=== PATIENT | female | born 1965 | race Caucasian/White ===

== ENCOUNTER 2018-01-11 15:49 | Observation (INO) | payer OTHER ==
[~2018-01-11] VITALS: Ht 167.6 cm; Wt 56.4 kg
[2018-01-11 16:17] LABS: BASOPHILS % 0.4 % (0.0-1.0); EOSINOPHILS # (AUTO) 0.1 (0.0-0.4); EOSINOPHILS % 2.6 % (0.0-6.0); HEMATOCRIT 36.3 % (34.2-44.1); HEMOGLOBIN 12.9 g/dL (12.0-16.0); LYMPHOCYTES # (AUTO) 1.6 (1.0-3.2); MEAN CORPUSCULAR HEMOGLOBIN 32.7 pg (28-32); MEAN CORPUSCULAR HGB CONC 35.5 g/dL (31-35); MEAN CORPUSCULAR VOLUME 92.1 fL (81-99); MONOCYTES # (AUTO) 0.7 (0.2-0.8); MONOCYTES % 15.2 % (4.4-11.3); NEUTROPHILS # (AUTO) 2.2 (2.1-6.9); NEUTROPHILS % 47.4 % (38.7-80.0); PLATELET COUNT 161 x10e3/uL (140-360); RED BLOOD COUNT 3.94 x10e6/uL (3.6-5.1); RED CELL DISTRIBUTION WIDTH 12.5 % (11.7-14.4)
--- NOTE | 2018-01-11 16:27 | Diagnostic Imaging Report ---
PROCEDURE: A single AP view of the chest. COMPARISON: None. INDICATIONS: MID CHEST PAIN, RADIATES TO NECK AND JAW FINDINGS: Lines/tubes: None. Lungs: The lungs are well inflated and clear. There is no evidence of pneumonia or pulmonary edema. Pleura: There is no pleural effusion or pneumothorax. Heart and mediastinum: The heart and the mediastinum are unremarkable. Bones: No acute bony abnormality. IMPRESSION: No acute cardiopulmonary disease. Dictated by: Brice Quan M.D. on 01/11/2018 at 16:31 Electronically approved by: Brice Quan M.D. on 01/11/2018 at 16:31
[2018-01-11 16:28] LABS: INR 1.07; PROTHROMBIN TIME 13.1 seconds (11.9-14.5)
[2018-01-11 16:29] LABS: PARTIAL THROMBOPLASTIN TIME 27.6 seconds (23.8-35.5)
[2018-01-11] MEDS ORDERED: ACETAMINOPHEN 325 MG TAB PO ONE (16:30)
[2018-01-11 16:38] LABS: ALANINE AMINOTRANSFERASE 15 IU/L (0-55); ALBUMIN 4.2 g/dL (3.5-5.0); ALBUMIN/GLOBULIN RATIO 1.6 (0.8-2.0); ALKALINE PHOSPHATASE 55 IU/L (40-150); ANION GAP 13.8 mmol/L (8-16); BLOOD UREA NITROGEN 30 mg/dL (7-26); BUN/CREATININE RATIO 30 (6-25); CALCIUM 9.7 mg/dL (8.4-10.2); CARBON DIOXIDE 28 mmol/L (22-29); CHLORIDE 102 mmol/L (98-107); CREATINE KINASE 44 IU/L (29-168); CREATININE, SERUM 1.01 mg/dL (0.57-1.11); EST GLOMERULAR FILTRATION RATE 57 ML/MIN (60-); GLUCOSE 95 mg/dL (74-118); POTASSIUM 3.8 mmol/L (3.5-5.1); SODIUM 140 mmol/L (136-145)
[2018-01-11 17:31] LABS: AMPHETAMINES SCREEN,URINE NEGATIVE (NEGATIVE); BENZODIAZEPINES SCREEN,URINE NEGATIVE (NEGATIVE); PHENCYCLIDINE SCREEN,URINE NEGATIVE (NEGATIVE)
[2018-01-11 17:33] LABS: BILIRUBIN,URINE NEGATIVE (NEGATIVE); CLARITY,URINE CLEAR (CLEAR); COLOR,URINE YELLOW (YELLOW); KETONES,URINE NEGATIVE (NEGATIVE); LEUKOCYTE ESTERASE ,URINE NEGATIVE (NEGATIVE); NITRITE,URINE NEGATIVE (NEGATIVE); PROTEIN,URINE DIPSTICK NEGATIVE (NEGATIVE); URINE UROBILINOGEN 0.2 mg/dL (0.2 - 1)
[2018-01-11 17:55] LABS: BACTERIA,URINE FEW /HPF; EPITHELIAL CELLS,URINE FEW /LPF; RBC,URINE 0-5 /HPF (0-5); WBC,URINE (MAN) 0-5 /HPF (0-5)
[2018-01-11] MEDS ORDERED: ASPIRIN 325 MG TAB PO ONE (18:15)
[2018-01-11 19:40] VITALS: BP 120/55
[2018-01-11 21:00] VITALS: BP 120/55
[2018-01-11 23:10] VITALS: BP 120/55
[2018-01-12] VITALS (9 sets, daily range): BP systolic 106–135; BP diastolic 49–67
[2018-01-12 00:43] LABS: CREATINE KINASE 34 IU/L (29-168)
[2018-01-12 06:41] LABS: CREATINE KINASE 38 IU/L (29-168)
[2018-01-12 07:11] LABS: CHOL/HDL RATIO 3.2 (3.0-3.6)
[2018-01-12 14:48] LABS: CREATINE KINASE 39 IU/L (29-168)
--- NOTE | 2018-01-12 18:08 | Consultation ---
DATE OF CONSULTATION: January 12, 2018 CARDIOLOGY CONSULTATION INDICATIONS: Chest pain. HISTORY OF PRESENT ILLNESS: Ms. Olmstead is a 52-year-old female who has had on and off chest pain for the last few days. This morning it became almost constant. Her pain is worse on moving. However, it is not exertional in nature. She denies any prior history of coronary artery disease. She is not on any cardiac medications. PAST MEDICAL HISTORY: As described above. SOCIAL HISTORY: Patient does not smoke. She drinks alcohol on a social basis but not excessively. REVIEW OF SYSTEMS: Negative except as dictated in the history of present illness. PHYSICAL EXAMINATION: VITALS: Afebrile, heart rate 78, blood pressure is 124/70. CARDIOVASCULAR: Regular rhythm. No murmurs or gallops. LUNGS: Clear to auscultation bilaterally. ABDOMEN: Soft. Bowel sounds heard adequately. Electrocardiogram is normal. Labs were reviewed. Cardiac enzymes are negative. ASSESSMENT: Atypical chest pain. RECOMMENDATIONS: Further risk stratification. Will rule out a myocardial infarction. Will recheck her cardiac enzymes. Echocardiogram and exercise nuclear stress test have been ordered. If normal, the patient may be discharged. I thank Dr. Hazel for this consultation. Job#: [id number] JUAN
--- NOTE | 2018-01-12 19:04 | Cardiology Report ---
DATE OF STUDY: January 12, 2018 NUCLEAR STRESS REPORT PROCEDURE TITLE Rest stress single isotope SPECT imaging with exercise stress and gated SPECT imaging. INDICATIONS: Chest pain. PROCEDURE: The patient performed treadmill exercise using a Abdirahman protocol. The patient exercised for 7 minutes 44 seconds to stage 3 and completing estimated work load of 10.1 metabolic equivalents (METs). The test was terminated due to fatigue. The heart rate was 79 beats per minute at rest and increased to 136 beats per minute at peak exercise, which was 81% of maximum predicted heart rate. The rest blood pressure was 141/73 and increased to 160/66 mmHg, which is a normal response. Patient did not develop any symptoms other than fatigue during the procedure. Resting electrocardiogram demonstrated normal sinus rhythm. There were no ST segment changes consistent with myocardial ischemia. Myocardial perfusion imaging was performed at rest following the injection of 9.8 millicuries of tetrofosmin. At peak exercise the patient was injected with 27 mCi of tetrofosmin and exercise was continued for 1 minute and gated post tomographic imaging was performed. FINDINGS: Overall quality of the study is fair. Attenuation artifact was present. Left ventricular cavity is noted to be normal size on the rest and stress studies. SPECT images demonstrate a medium-sized moderately severe perfusion defect on rest images that improves with stress. Gated SPECT imaging reveals normal myocardial thickening and wall motion. Left ventricular ejection fraction is calculated to be greater than 70%. IMPRESSION: Myocardial perfusion imaging is normal. There is a moderate sized area of attenuation artifact in the anterior wall consistent with the patient's known history of breast implants. Overall left ventricular systolic function was normal without regional wall motion abnormalities. Job#: [id number] cc: BHAVNA SANCHEZ MD [facility]
[2018-01-12] MEDS ORDERED: TRAMADOL HCL 50 MG TAB PO PRN (20:30)
--- NOTE | 2018-01-12 21:29 | Diagnostic Imaging Report ---
Exam: Head CT without contrast History: Headache Comparison studies: None Technique: Axial images were obtained from the skull base to the vertex. Coronal and sagittal images reconstructed from the axial data. Intravenous contrast: None Findings: Scalp: No abnormalities. Bones: No fractures, blastic or lytic lesions. Brain sulci: Appropriate for age. Ventricles: Normal in size and configuration. No hydrocephalus. Extra-axial spaces: No masses, no fluid collection. Parenchyma: No abnormal densities. No masses, acute hemorrhage, acute or chronic vascular insults. Sellar/suprasellar region: No abnormalities. Craniocervical junction: Patent foramen magnum. No Chiari one malformation. 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 Trace fluid level in the right sphenoid sinus. The remaining included para nasal sinuses and middle ear mastoid cavities are clear. IMPRESSION: 1. No acute intracranial abnormalities. 2. Trace nonspecific fluid in the right sphenoid sinus could be correlated for sinusitis. Signed by: Dr. Andrea Prasad M.D. on 01/12/2018 9:22 PM
== END 2018-01-12 22:19 | disposition home or self-care (01) ==
LOC: ER 15:49 → ERHOLD 17:59 → IMCU 19:29
PROVIDERS: ADMIT Internal Medicine; ATTEND Internal Medicine
DX: R07.89 Other chest pain (principal); Z82.49 Family history of ischemic heart disease and other diseases of the circulatory system; Z88.5 Allergy status to narcotic agent; Z88.0 Allergy status to penicillin; G47.00 Insomnia, unspecified
CPT/HCPCS: 36415; 70450; 71045; 78452; 80053; 80061; 80307; 81001; 82550 ×2; 82553 ×2; 84484 ×2; 85025; 85610; 85730; 93005; 93017; 93306; 99284; A9502; G0378 ×2